=== PATIENT | female | born 1935 | race Caucasian/White ===

== ENCOUNTER 2017-11-02 14:02 | Emergency (ER) | payer SELFPAY ==
[~2017-11-02] VITALS: Wt 38.2 kg
[2017-11-02] MEDS ORDERED: ALBUTEROL 0.5% (NEB) 2.5 MG/0.5 ML AMP INH STA (16:25)
[2017-11-02] MEDS ORDERED: METHYLPREDNISOLONE 125 MG INJ IV STA (16:25)
[2017-11-02] MEDS ORDERED: SOD CHLORIDE 0.9% 1,000 ML IV ONE (17:30)
[2017-11-02] MEDS ORDERED: ALBU8.5H3 INH (19:42)
[2017-11-02] MEDS ORDERED: PRED20TA PO (19:42)
[2017-11-02 19:46] VITALS: BP 123/58; PULSE 97; RESP 18
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
== END 2017-11-02 20:13 | disposition home or self-care (01) ==
LOC: E/R 14:02
DX: J45.901 Unspecified asthma with (acute) exacerbation (principal)
CPT/HCPCS: 94644; 96374; 99284; J2930; J7030